=== PATIENT | female | born 1950 | race Two or more races ===

== ENCOUNTER 2017-07-12 18:39 | Emergency (ER) | payer OTHER ==
[~2017-07-12] VITALS: Ht 167.6 cm; Wt 67.6 kg
[~2017-07-12 18:39] MED LIST: ASPIR 8181 MG; CEFADROXIL500 MG PO; CELEBREX100 MG PO; CLONAZEPAM1 GM; EVISTA60 MG; LOPRESSOR5 MG/5 ML; LYRICA300 MG PO; METFORMIN HCL500 MG; NEURONTIN600 MG; NITROLINGUAL12 GM; SIMVASTATIN10 MG; SULFAMETHOXAZOL1 TA6 PO; TOPROL XL50 MG PO; TRAMADOL HCL50 MG PO; VISTARIL25 MG PO; ZANTAC300 MG PO; [UNRECOGNIZED DRUG - OTHER]
[2017-07-13] MEDS ORDERED: LEVSIN/SL0.125 MG SL (02:34)
[2017-07-13] MEDS ORDERED: ANUSOL-HC25 MG RECTAL (02:34)
== END 2017-07-13 02:38 | disposition home or self-care (01) ==
LOC: ER 18:39
DX: R10.32 Left lower quadrant pain (principal)

== ENCOUNTER 2017-11-28 11:30 | Emergency (ER) | payer OTHER ==
[~2017-11-28] VITALS: Ht 167.6 cm; Wt 68.0 kg
[~2017-11-28 11:30] MED LIST changes: +ANUSOL-HC25 MG RECTAL; +LEVSIN/SL0.125 MG SL
== END 2017-11-28 13:32 | disposition home or self-care (01) ==
LOC: ER 11:30
DX: K52.89 Other specified noninfective gastroenteritis and colitis (principal)

== ENCOUNTER 2018-04-02 11:30 | Emergency (ER) | payer OTHER ==
[~2018-04-02] VITALS: Ht 167.6 cm; Wt 68.5 kg
== END 2018-04-02 19:50 | disposition home or self-care (01) ==
LOC: ER 11:30
DX: R42 Dizziness and giddiness (principal); R07.89 Other chest pain

== ENCOUNTER 2018-11-25 12:29 | Emergency (ER) | payer OTHER ==
[~2018-11-25] VITALS: Ht 167.6 cm; Wt 69.9 kg
== END 2018-11-27 19:38 | disposition home or self-care (01) ==
LOC: ER 12:29 → CPU-OBS 13:18 → ER 11-27 19:38
DX: I47.1 Supraventricular tachycardia (principal); R00.2 Palpitations; I25.9 Chronic ischemic heart disease, unspecified; I10 Essential (primary) hypertension; R07.89 Other chest pain; F41.8 Other specified anxiety disorders

== ENCOUNTER 2019-03-10 09:25 | Emergency (ER) | payer OTHER ==
[~2019-03-10] VITALS: Ht 167.6 cm; Wt 69.9 kg
== END 2019-03-10 12:15 | disposition home or self-care (01) ==
LOC: ER 09:25
DX: G89.11 Acute pain due to trauma (principal); M25.512 Pain in left shoulder; M25.522 Pain in left elbow; M75.32 Calcific tendinitis of left shoulder

== ENCOUNTER 2020-01-11 13:10 | Emergency (ER) | payer OTHER ==
[~2020-01-11] VITALS: Ht 167.6 cm; Wt 69.9 kg
[2020-01-11] MEDS ORDERED: SEROQUEL200 MG PO (13:26)
[2020-01-11] MEDS ORDERED: CLONAZEPAM1 GM MC (13:26)
== END 2020-01-11 20:49 | disposition home or self-care (01) ==
LOC: ER 13:10
DX: K29.70 Gastritis, unspecified, without bleeding (principal)

== ENCOUNTER 2020-10-14 11:57 | Inpatient (IN) | payer OTHER ==
[~2020-10-14] VITALS: Ht 165.1 cm; Wt 70.3 kg
[~2020-10-14 11:57] MED LIST changes: +CLONAZEPAM1 GM MC; +SEROQUEL200 MG PO
== END 2020-10-19 15:06 | disposition designated cancer center or children's hospital (05) | DRG 311 ==
LOC: ER 11:57 → SEC-K 20:14 → MEDI 20:14
PROVIDERS: ADMIT Internal Medicine; ATTEND Internal Medicine
PROC: B24BYZZ Ultrasonography of Heart with Aorta using Other Contrast (ICD-10-PCS; principal; 2020-10-14)
PROC: 4A12XM4 Monitoring of Cardiac Stress, External Approach (ICD-10-PCS; 2020-10-14)
PROC: 3E073KZ Introduction of Other Diagnostic Substance into Coronary Artery, Percutaneous Approach (ICD-10-PCS; 2020-10-14)
PROC: 4A12X4Z Monitoring of Cardiac Electrical Activity, External Approach (ICD-10-PCS; 2020-10-14)
DX: I24.9 Acute ischemic heart disease, unspecified (principal); I11.9 Hypertensive heart disease without heart failure; I25.10 Atherosclerotic heart disease of native coronary artery without angina pectoris; E11.9 Type 2 diabetes mellitus without complications; E78.5 Hyperlipidemia, unspecified

== ENCOUNTER 2020-12-06 16:05 | Emergency (ER) | payer OTHER ==
[~2020-12-06] VITALS: Ht 167.6 cm; Wt 70.3 kg
== END 2020-12-06 20:30 | disposition left against medical advice (07) ==
LOC: ER 16:05
DX: K52.89 Other specified noninfective gastroenteritis and colitis (principal)

== ENCOUNTER 2021-11-23 16:51 | Emergency (ER) | payer OTHER ==
[~2021-11-23] VITALS: Ht 167.6 cm; Wt 68.0 kg
== END 2021-11-23 21:34 | disposition home or self-care (01) ==
LOC: ER 16:51
DX: R55 Syncope and collapse (principal); Z20.822 Contact with and (suspected) exposure to COVID-19; Z88.8 Allergy status to other drugs, medicaments and biological substances

== ENCOUNTER → 2022-07-11 | Emergency (ER) | payer OTHER ==
[~2022-07-11] VITALS: Ht 162.6 cm; Wt 76.2 kg
== END | disposition left against medical advice (07) ==
LOC: ER 15:36
DX: Z53.21 Procedure and treatment not carried out due to patient leaving prior to being seen by health care provider (principal)